=== PATIENT | female | born 1975 | race Caucasian/White ===

== ENCOUNTER → 2019-11-23 | Outpatient (CLI) | payer OTHER, SELFPAY ==
--- NOTE | 2019-11-23 12:25 | BI_ITS ---
MAMMOGRAPHY - BILATERAL SCREENING 3-D TOMOSYNTHESIS REASON FOR EXAM: Female, 44 years old. Routine screening PERTINENT HISTORY: BILAT SCREENING - NO FAM HX - NO PREV SURG''S - RT MOLE MARKED. TECHNIQUE: 2-D mammograms and 3-D Tomosynthesis of the breast (s) were performed. CAD was performed. COMPARISON: 2018 FINDINGS: The breast composition is heterogeneously dense that can obscure small breast masses. Scattered benign calcifications are seen. No dense spiculated masses or suspicious microcalcifications are identified. No architectural distortion is identified. There is no skin thickening or retraction. There has been no significant change since the prior study. BI/SCREEN MAMM (CAD) W/THUAN BILAT IMPRESSION: No mammographic signs of malignancy. Routine yearly mammograms recommended. ASSESSMENT CATEGORY: BIRADS Category 2: Benign. A letter regarding these results will be sent to the patient by the facility within 30 days. FOLLOW UP RECOMMENDATION: Yearly follow up mammogram recommended. (A) Approximately 10% of breast cancers are not detected by mammography. A normal mammogram should not delay biopsy of a clinically suspicious abnormality. Electronically Signed: Leno Tillman MD at 14:10 EDT , Service support ,
== END | disposition home or self-care (01) ==
LOC: OPBI 12:23
PROVIDERS: PCP Family Medicine; Referring Provider Physician Assistant; Visit Provider Physician Assistant
DX: Z12.31 Encounter for screening mammogram for malignant neoplasm of breast (principal)
CPT/HCPCS: 77063; 77067

== ENCOUNTER 2020-06-03 17:00 | Outpatient (RCR) | payer OTHER, SELFPAY ==
[2020-02-15 16:17] VITALS: BMI 47.9
--- NOTE | 2020-05-09 17:02 | HP.PTEVAL ---
Patient's Visit Information GALILEA BRAVO is a 44 year old F referred to Physical Therapy by KANWAL Becerra with a diagnosis of Lumbar Pain from Fall. Date of Evaluation: 05/09/20 Physical Therapist: Aracely Sneed DPT - Visit Plan Frequency: 3x /Week Duration: 4 Weeks Plan: Aquatic-focus on LE and core strength/stabilzation- possible extension bias. - Subjective Patient reports that she fell at work in January- she slipped on water and her right foot went out from under her and she landed on her right buttock ([employer]). Hit elbow and sprained wrist- everything else has healed but her back is still bothersome. She has never had back problems before and now she has chronic pain. The back started bothering her from the beginning but now its in the low back and into the right buttock and into the left buttocks and radiate down to the left foot. The pain comes an goes and changes. When she was sick she was sneezing and then had severe pain- went to bed and she was much better. Worst: 10/10 Agg: sneezing fit, everything, sitting for to long, standing to long, bending forwards. Sleep: disturbed- hard to get comfortable and wakes her up. Eases: changing positions. Best: 3/10. Describes the pain as dull and achy but can also be shooting/sharp. Pinching in her right buttocks and the whole area is achy. Has had x-rays but no MRI on her spine. Every once in awhile she has N/T in the left LE. Pain in the left leg and calf has only happened 1x. Does report some changes in bowel/bladder but attributes that to menopaus-its getting better. Is not taking any pain medication other than over the counter. 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 PMHx: GERD, epileptic (no seizure for every 10 years). Meds: lomictal - Objective Posture: significant guarding- FH, RS- increased kyphosis- can not correct with verbal or tactile cues without pain. Gait: no significant deviation noted HR/TR: able in standing with UE A. SLS: 3 sec bilateral Sensation: WNL to gross touch bilateral. Reflex: WNL Palpation: tender to light touch in hip and into the gluts and paraspinals. ROM: Lumbar: flexion to 90 degrees with support from chair, Ext: neutral, SB and Rotation: WNL reports pain with SB and Right Rotation Hip/Knee/Ankle: WFL. Strength: Core: poor, Hip: 4/5 throughout Knee: 4+/5, Ankle: 5/5. Flex: HS: severe, Gastroc: severe. Special Test: Slump: positive, Dural Signs: positive bilateral, Prone decreased s/s but then when she returned to neutral reports of stronger pains - Goals Goal 1:: Patient will be I with HEP and progression Goal Time Frame: 4-6 Weeks Goal 2:: Patient will maintain proper posture t/o tx session to demo increase core s.s Goal Time Frame: 4-6 Weeks Goal 3:: Patient will report no radiating pain Goal Time Frame: 4-6 Weeks - Rehabilitation Potential Physical Therapy Diagnosis: Patient presents from hypomobiliy- she has decreased ROM,strength, flex and muscular endurance leading to increased pain with ADL's. Rehabilitation Potential: Fair - Anticipated Interventions Therapeutic Exercise to Include: Strength training, Endurance training, Balance training, Agility training, Body mechanics, Postural training, Flexibilty training, Gait and locomotor training, Neuromotor development, In an aquatic setting, Passive ROM, Active ROM, Dynamic Lumbar Stabilization, Jignesh Exercises, Scapular Strength/Stabilization For the Purpose of:: To improve muscle performance and motor function Thank you for the opportunity to evaluate your patient. For Medicare and Medicare HMO plans, please review the plan of care and approve it. It will need to be FAXED BACK to us at [phone] for Medicare purposes. For Medicare only, by signing this I certify the plan of care. Please let me know if there are questions or concerns regarding this plan of care. Physician Signature: Date:
--- NOTE | 2020-07-08 13:51 | HP.PT.NRP ---
GALILEA BRAVO was seen in my office for initial evaluation on 05/09/20. The following Plan of Care was established for this patient: Initial Frequency: 3x /Week Initial Duration: 4 Weeks Therapeutic Exercise to Include: Strength training, Endurance training, Balance training, Agility training, Body mechanics, Postural training, Flexibilty training, Gait and locomotor training, Neuromotor development, In an aquatic setting, Passive ROM, Active ROM, Dynamic Lumbar Stabilization, Jignesh Exercises, Scapular Strength/Stabilization For the Purpose of:: To improve muscle performance and motor function This patient was last seen in our office . Pertinent comments regarding their Physical therapy will appear below: Patient has not attended physical therapy in over 30 days, appropriate to be discharged from PT and return to MD for further evaluation as needed. At this point I will be discontinuing this patient from physical therapy. I would be happy to see this patient again in the future if found appropriate by the physician. Thank you! Aracely Sneed DPT
== END 2020-06-03 19:00 | disposition home or self-care (01) ==
LOC: PT 17:00
PROVIDERS: PCP Physician Assistant; Referring Provider Physician Assistant; Visit Provider Physician Assistant
DX: S39.012D Strain of muscle, fascia and tendon of lower back, subsequent encounter (principal); S29.019D Strain of muscle and tendon of unspecified wall of thorax, subsequent encounter
CPT/HCPCS: 97113; 97162

== ENCOUNTER 2022-09-17 04:49 | Emergency (ER) | payer BC, SELFPAY ==
[2022-09-17 04:49] VITALS: BP 123/74; PULSE 93; RESP 17; TEMP 36.6; O2SAT 100; BMI 52.7
--- NOTE | 2022-09-17 04:57 | CT_ITS ---
EXAM: CT HEAD WITHOUT INTRAVENOUS CONTRAST CLINICAL INDICATION: head injury TECHNIQUE: Multiple axial images were obtained of the head without intravenous contrast. This CT exam was performed using one or more of the following dose reduction techniques: automated exposure control, adjustment of the mA and/or kV according to patient size, and/or use of iterative reconstruction technique. COMPARISON: No relevant prior studies available. FINDINGS: BRAIN AND EXTRA-AXIAL SPACES: Unremarkable. No intra- or extra-axial hemorrhage. No evidence of acute infarct. No intracranial mass or mass effect. There is preservation of the logan/white matter interface. Posterior fossa structures are unremarkable. Ventricles are appropriate for age. No hydrocephalus. Basal cisterns are patent. BONES/JOINTS: Unremarkable. No discrete lytic or blastic abnormalities. SINUSES: Unremarkable as visualized. Clear. MASTOID AIR CELLS: Unremarkable. Clear. ORBITS: Visualized globes, extraocular muscles, optic nerves and retrobulbar fat appear unremarkable. ASPECTS: 10 CT/Brain/Head without Contrast IMPRESSION: Negative head/brain CT without intravenous contrast. Electronically Signed: Deniz Flaherty MD at 5:36 EDT ,
--- NOTE | 2022-09-17 04:58 | EX.ED.DYSGE1 ---
HPI History of Present Illness Chief Complaint: Seizure Detail of Chief Complaint: Seizure Informant: patient and spouse/S.O. Narrative Narrative: Patient presents to the emergency department from home with complaint of a seizure. Patient presents via squad. states that he was get ready for work when he had heard a thud upstairs. He went up and found her on the bathroom floor seizing. Patient does have history of seizures but her last seizure was about 15 years ago. Patient just last month was taken off her lamotrigine after following up with neurology. Patient complaining of some pain in her right shoulder. She denies headache. She denies chest pain. She denies abdominal pain. She denies recent illness. Patient did not lose control of bowel or bladder. [facility] Medical History (Updated 09/17/22 @ 06:[address] Alecia Christian, DO) Seizures Home Medications lamotrigine 200 mg tablet 200 mg PO DAILY #30 tabs 09/17/22 [Rx Last Taken Unknown] Allergy/AdvReac Type Severity Reaction Status Date / Time No Known Allergies Allergy Verified 09/17/22 04:54 Social History (Updated 05/22/20 @ 13:19 by Mickey SCHOFIELD, PA) Smoking Status: Never smoker ROS ROS ED Review of Systems ROS Unobtainable: other Constitutional Constitutional ED: Reports lethargy; Denies chills, fever(s), sweats or weight loss Eyes Eyes: Denies blurry vision, change in vision or diplopia ENT ENT ED: Denies rhinorrhea or sore throat Cardiovascular Cardiovascular: Denies chest pain, orthopnea or racing heartbeat Respiratory/Chest Respiratory/Chest: Denies cough, dyspnea, dyspnea on exertion, orthopnea or sputum Gastrointestinal Gastrointestinal: Denies abdominal pain, diarrhea, nausea or vomiting Genitourinary Genitourinary ED: Denies dysuria, hematuria or urinary frequency Musculoskeletal Musculoskeletal: Denies arthralgias, back pain, myalgias or neck pain Integumentary Denies abscess, Abrasions or rash Neurologic Neurologic: Reports other Details: Seizure ; Denies headache(s) or weakness Psychiatric Psychiatric: Denies anxiety, depression or suicidal thoughts Endocrine Endocrinology: Denies polydipsia, polyphagia or polyuria Hematologic/Lymphatic Hematologic/Lymphatic: Denies easy bleeding, easy bruising or lymphadenopathy Allergic/Immunologic Allergic/Immunologic ED: Denies mouth swelling, tongue swelling or urticaria EXAM Physical Exam Const Vital Signs: 09/17/22 04:49 Temperature 97.9 F Temperature Source Temporal Pulse Rate 93 Respiratory Rate 17 Blood Pressure 123/74 H Blood Pressure Mean 90 Pulse Ox 100 Oxygen Delivery Method Room Air Positive well nourished and well developed General Appearance ED: well developed and NAD HEENT Reports TM's clear and moist mucous membranes HEENT Narrative: Small contusion to the mucosal surface of the lower lip. No dental trauma noted. No bite wounds to the tongue noted. normocephalic and atraumatic; Negative for trauma or tenderness Tympanic Membrane ED: Yes TM's clear Eyes PERRL and EOMs intact bilaterally General Eye ED: Negative for pale conjunctiva or scleral icterus Neck no lymphadenopathy, supple and no JVD General: Negative for tenderness Chest Wall inspection of chest normal and palpation of chest normal Chest: Negative for tenderness Resp normal respiratory effort and clear to auscultation bilaterally Effort and Inspection: Negative for respiratory distress or pain with movement Auscultation: Negative for rhonchi, wheezes or diminished lung sounds Cardio regular rate, regular rhythm, S1 normal heart sound, S2 normal heart sound and no murmurs Peripheral Pulses: pulses 2+ throughout GI normal to inspection, nondistended, normoactive bowel sounds, soft to palpation, non-tender, non-distended and no masses Back/Spine no CVA tenderness and no thoracic nor lumbar tenderness Extremity normal to inspection General Extremety ED: Negative for edema General Extremity: Negative for edema Neuro oriented x3, CN's II-XII intact bilaterally, no sensory deficits noted and gait normal Sensorium / Orientation: awake, alert, oriented to person, oriented to place and oriented to time Motor Exam: strength 5/5 throughout and strength abnormal Psych mental status grossly normal Skin no rashes or lesions noted and no wounds MDM MDM MDM Narrative Medical decision making narrative: Patient with suspected seizure presents from home. She did fall therefore CT scan of the brain without contrast was obtained and this was unremarkable. Patient also complained of some right shoulder pain and x-ray of the right shoulder obtained showed no fractures. Patient had some basic labs with CBC showing a white count of 5.1 and hemoglobin 9.9. Chemistries unremarkable. LFTs unremarkable. Glucose was 146. Urinalysis also ordered. Patient started complaining of pain in the left shoulder blade area as well as her right hip therefore I ordered x-ray of the left scapula and pelvis x-ray which are pending. Patient tells me she really does not see a neurologist. She had an EEG in [place] and a telehealth visit with a neurologist but that her PCP actually took her off the seizure medicine that she was on the Lamictal. Patient had not had a seizure in 15 years. At this point I did restart her Lamictal 200 mg a day. Care of patient turned over to morning physician awaiting imaging results and urinalysis results. Care of patient turned over to morning physician awaiting urine results and imaging results. Lab Data Attestation: I reviewed the patient's lab results. Labs: Laboratory Results - last 24 hr 09/17/22 09/17/22 05:03 05:03 WBC 5.1 RBC 4.51 Hgb 9.9 L Hct 33.5 L MCV 74.3 L MCH 22.0 L MCHC 29.6 L RDW Std Deviation 47.3 H RDW Coeff of Aamir 17.7 H Plt Count 207 MPV 9.4 Immature Gran % (Auto) 0.600 Neut % (Auto) 67.8 Lymph % (Auto) 23.2 Atkinson % (Auto) 8.4 Eos % (Auto) 0.0 Baso % (Auto) 0.0 Absolute Neuts (auto) 3.5 Absolute Lymphs (auto) 1.18 Nucleated RBC % 0 Sodium 139 Potassium 3.4 L Chloride 108 H Carbon Dioxide 24.0 Anion Gap 7 BUN 13 Creatinine 0.96 Estim Creat Clear Calc 56.07 Est GFR (MDRD) Af Amer 80 Est GFR (MDRD) Non-Af 66 BUN/Creatinine Ratio 13.5 Glucose 146 H Calcium 8.9 Total Bilirubin 0.40 AST 27 ALT 53 Alkaline Phosphatase 84 Total Protein 6.5 Albumin 3.5 Globulin 3.0 Albumin/Globulin Ratio 1.2 Radiography Diagnostic Testing: Clinical Impression(s) from Imaging Studies Brain CT 09/17/22 04:57 IMPRESSION: Negative head/brain CT without intravenous contrast. Electronically Signed: Deniz Flaherty MD at 5:36 EDT , Shoulder X-Ray 09/17/22 15:20 IMPRESSION: Negative right shoulder x-rays. Electronically Signed: Deniz Flaherty MD at 5:39 EDT , Discharge Plan Triage Chief Complaint: Seizure ED Provider: Alecia Christian Dx/Rx/DC Orders Clinical Impression: Seizure, Back contusion, Closed head injury Instructions: ED Back Contusion, ED Head Injury (Adult), ED Seizure, Recurrent (Adult) Prescriptions: New lamotrigine 200 mg tablet 200 mg PO DAILY Qty: 30 0RF Primary Care Provider: Rach Perkins Referrals: Rach Perkins, KANWAL [Primary Care Provider] - 3-5 Days Disposition Disposition: Home, Self Care
[2022-09-17 05:08] LABS: Absolute Lymphocyte Count 1.18 X10^3/uL (0.83-4.51); Absolute Neutrophil Count 3.5 X10^3/uL (2.0-7.7); Hematocrit 33.5 % (37-47); Hemoglobin 9.9 g/dL (12.0-15.0); Lymphocyte # 1.18 X10^3/ul (0.83-4.51); Lymphocyte % 23.2 % (19-41); Mean Corp Hgb Conc 29.6 g/dL (32-36); Mean Corpuscular Volume 74.3 fL (81-99); Mean Platelet Vol. 9.4 fl (6.2-12.0); Monocyte# 0.43 X10^3/uL; Monocyte% 8.4 % (0-10); NRBC Flagged by Analyzer 0 % (0-5); Neutrophil # 3.45 X10^3/uL (2.7-7.7); Neutrophil % 67.8 % (47-70); Platelet Count 207 K/mm3 (150-450); RBC Distribution Width CV 17.7 % (11.6-14.6); RBC Distribution Width SD 47.3 fl (35.1-43.9); Red Blood Count 4.51 M/mm3 (4.2-5.4); White Blood Count 5.1 K/mm3 (4.4-11.0)
[2022-09-17] MEDS: lamoTRIgine 100 MG Tablet 200 MG PO (05:50)
[2022-09-17 06:05] LABS: ALB/GLOB Ratio 1.2 RATIO (0.9-2.4); Albumin, Serum 3.5 g/dL (3.2-5.0); BUN 13 mg/dL (7-18); BUN/Creat Ratio 13.5 RATIO (10-20); Calcium,Total 8.9 mg/dL (8.5-10.1); Creatinine, Serum 0.96 mg/dL (0.55-1.02); Estimated Creatinine Clearance 56.07 ml/min; Glucose 146 mg/dL (74-106); Protein, Total 6.5 g/dL (6.4-8.2)
[2022-09-17 06:06] LABS: AST(SGOT) 27 U/L (15-37); Alanine Aminotransfer ALT/SGPT 53 U/L (13-56); Alkaline Phosphatase 84 U/L (45-117); Anion Gap 7 (5-15); Chloride 108 mmol/L (98-107); Potassium 3.4 mmol/L (3.5-5.1); Sodium Level 139 mmol/L (136-145)
[2022-09-17] MEDS: Ondansetron 4 MG/2 ML Vial IV (06:07)
[2022-09-17] MEDS: Morphine 4 MG/ML Syringe IV (06:07)
--- NOTE | 2022-09-17 06:55 | RAD_ITS ---
EXAM: XR PELVIS, 1 OR 2 VIEWS CLINICAL INDICATION: fall TECHNIQUE: Frontal view of the pelvis. COMPARISON: No relevant prior studies available. FINDINGS: BONES/JOINTS: Unremarkable. No displaced fracture. No destructive or sclerotic lesions. Note that overlapping bowel shadows may however obscure fine detail. Sacroiliac joints are unremarkable. No widening of the pubic symphysis. The articular structures are unremarkable. SOFT TISSUES: Unremarkable. No soft tissue swelling or gas. RAD/Pelvis 1 or 2 Views IMPRESSION: No evidence of displaced pelvic fracture. Electronically Signed: Deniz Flaherty MD at 7:12 EDT ,
--- NOTE | 2022-09-17 06:55 | RAD_ITS ---
EXAM: XR LEFT SCAPULA COMPLETE CLINICAL INDICATION: injury TECHNIQUE: Frontal and Y-view of the left scapula. COMPARISON: Shoulder from same date FINDINGS: BONES/JOINTS: Unremarkable. No acute fracture. No subluxation. Normal alignment. Preservation of the joint space. No sclerotic or destructive changes observed. SOFT TISSUES: Unremarkable. No soft tissue swelling or gas. No radiopaque foreign body. RAD/Scapula IMPRESSION: Negative left scapula x-rays. Electronically Signed: Deniz Flaherty MD at 7:21 EDT ,
[2022-09-17] MEDS: Ketorolac 30 MG/ML Syringe IV (07:19)
[2022-09-17 08:04] LABS: EST Glomerular Filtration Rate 66 mL/min (>60); Est Glom Filt Rate - Afr Amer 79 mL/min (>60); Prolactin 23.4 ng/mL
[2022-09-17 08:15] VITALS: BP 124/78; PULSE 90; RESP 16; O2SAT 99
--- NOTE | 2022-09-17 15:20 | RAD_ITS ---
EXAM: XR RIGHT SHOULDER COMPLETE, 2 OR MORE VIEWS CLINICAL INDICATION: injury TECHNIQUE: Two or more views of the right shoulder. COMPARISON: No relevant prior studies available. FINDINGS: BONES/JOINTS: Unremarkable. No acute fracture. No subluxation. Normal alignment. Preservation of the joint space. No sclerotic or destructive changes observed. SOFT TISSUES: Unremarkable. No soft tissue swelling or gas. No radiopaque foreign body. RAD/Shoulder min 2 Views IMPRESSION: Negative right shoulder x-rays. Electronically Signed: Deniz Flaherty MD at 5:39 EDT ,
== END 2022-09-17 08:49 | disposition home or self-care (01) ==
PROVIDERS: Emergency Provider Emergency Medicine; PCP Physician Assistant; Visit Provider Emergency Medicine
DX: R56.9 Unspecified convulsions (principal); S20.229A Contusion of unspecified back wall of thorax, initial encounter; M25.511 Pain in right shoulder; S09.90XA Unspecified injury of head, initial encounter; S00.531A Contusion of lip, initial encounter; W19.XXXA Unspecified fall, initial encounter
CPT/HCPCS: 70450; 72170; 73010; 73030; 80053; 84146; 85025; 96374; 96375; 99285; J2405

== ENCOUNTER → 2022-12-15 | Outpatient (CLI) | payer BC, SELFPAY ==
--- NOTE | 2022-12-15 14:30 | US_ITS ---
STUDY: ULTRASOUND BREAST - LEFT REASON FOR EXAM: Female, 47 years old. Nipple discharge in the left breast. TECHNIQUE: Axial and longitudinal images of the LEFT breast were performed with a high resolution ultrasound transducer. # OF IMAGES: 50 COMPARISON: Comparison is made with prior mammogram done earlier in the day. FINDINGS: LEFT Breast: The retroareolar region of the breast was examined with ultrasound. There is evidence of dilated subareolar ducts. Incidental note is made of a 5 mm x 6 mm x 5 mm cyst. US/Breast Limited Unilateral IMPRESSION: There is a 5 mm x 6 mm x 5 mm cyst. Dilated retroareolar ducts. ASSESSMENT CATEGORY: BIRADS Category 2: Benign. A letter regarding these results will be sent to the patient by the facility within 30 days. Electronically Signed: Balta Espino MD at 9:41 EDT ,
--- NOTE | 2022-12-15 14:30 | BI_ITS ---
MAMMOGRAPHY - BILATERAL DIAGNOSTIC REASON FOR EXAM: Female, 47 years old. Recent left breast hematoma following a fall. Bilateral breast discharge. PERTINENT HISTORY: Non-contributory. TECHNIQUE: Digital bilateral breast carlos alberto (3D mammographic acquisition) in the CC and MLO projections. 2-D mediolateral oblique (MLO) and craniocaudad (CC) views of both breasts were obtained. CAD: Full Field Digital Mammography with Computer Added Detection was performed. COMPARISON: Comparison is made with prior study dated November 23, 2019. FINDINGS: Breast Composition: The breasts are heterogeneously dense, which may obscure small masses. There are no dominant masses or suspicious calcifications. Stable bilateral fat containing axillary lymph nodes. No other significant abnormalities are identified. There has been no significant change since the prior study. BI/DIAG MAMM W/CAD, BILAT IMPRESSION: Stable bilateral diagnostic mammogram. With the patient''s history of a hematoma in the left breast as well as bilateral nipple discharge, targeted ultrasound of both breasts is recommended. ASSESSMENT CATEGORY: BIRADS Category 0: Incomplete. Need additional imaging evaluation. A letter regarding these results will be sent to the patient by the facility within 30 days. Approximately 10% of breast cancers are not detected by mammography. A normal mammogram should not delay biopsy of a clinically suspicious abnormality. Electronically Signed: Balta Espino MD at 8:10 EDT ,
== END | disposition home or self-care (01) ==
LOC: OPBI 14:25
PROVIDERS: PCP Physician Assistant; Referring Provider Obstetrics & Gynecology; Visit Provider Obstetrics & Gynecology
DX: N64.52 Nipple discharge (principal)
CPT/HCPCS: 76642; 77062; 77066; G0279

== ENCOUNTER → 2022-12-22 | Outpatient (CLI) | payer BC, SELFPAY ==
[2022-12-22 18:31] LABS: Absolute Lymphocyte Count 1.23 X10^3/uL (0.83-4.51); Absolute Neutrophil Count 3.4 X10^3/uL (2.0-7.7); Hematocrit 34.3 % (37-47); Hemoglobin 10.3 g/dL (12.0-15.0); Lymphocyte # 1.23 X10^3/ul (0.83-4.51); Lymphocyte % 24.4 % (19-41); Mean Corpuscular Hgb 22.5 pg (27.0-32.0); Mean Corpuscular Volume 74.9 fL (81-99); Mean Platelet Vol. 9.7 fl (6.2-12.0); Monocyte# 0.45 X10^3/uL; Monocyte% 8.9 % (0-10); NRBC Flagged by Analyzer 0 % (0-5); Neutrophil # 3.36 X10^3/uL (2.7-7.7); Neutrophil % 66.5 % (47-70); Platelet Count 253 K/mm3 (150-450); RBC Distribution Width CV 17.1 % (11.6-14.6); RBC Distribution Width SD 45.4 fl (35.1-43.9); Red Blood Count 4.58 M/mm3 (4.2-5.4); White Blood Count 5.1 K/mm3 (4.4-11.0)
[2022-12-22 20:01] LABS: ALB/GLOB Ratio 1.2 RATIO (0.9-2.4); AST(SGOT) 34 U/L (15-37); Alanine Aminotransfer ALT/SGPT 66 U/L (13-56); Albumin, Serum 3.7 g/dL (3.2-5.0); Alkaline Phosphatase 94 U/L (45-117); Anion Gap 7 (5-15); BUN 14 mg/dL (7-18); BUN/Creat Ratio 19.2 RATIO (10-20); Calcium,Total 8.9 mg/dL (8.5-10.1); Chloride 106 mmol/L (98-107); Cholesterol 195 mg/dL (200); Creatinine, Serum 0.73 mg/dL (0.55-1.02); EST Glomerular Filtration Rate 90 mL/min (>60); Est Glom Filt Rate - Afr Amer 109 mL/min (>60); Follicle Stimulating Hormone 39.3 mIU/mL; Glucose 94 mg/dL (74-106); High Density Lipoprotein 43 mg/dL; Luteinizing Hormone 22.9 mIU/mL; Potassium 3.7 mmol/L (3.5-5.1); Protein, Total 6.7 g/dL (6.4-8.2); Sodium Level 139 mmol/L (136-145); Thyroid Stim Hormone (TSH) 1.11 uIU/mL (0.358-3.74); Triglycerides 200 mg/dL; Very Low Density Lipoprotein 40 mg/dL (5-40)
== END | disposition home or self-care (01) ==
LOC: MFPLAB 15:41
PROVIDERS: PCP Family Medicine; Visit Provider Family Medicine
DX: R53.83 Other fatigue (principal); Z13.1 Encounter for screening for diabetes mellitus; N95.9 Unspecified menopausal and perimenopausal disorder
CPT/HCPCS: 36415; 80053; 80061; 83001; 83002; 84443; 85025

== ENCOUNTER → 2024-02-17 | Outpatient (CLI) | payer BC, SELFPAY ==
--- NOTE | 2024-02-17 13:26 | BI_ITS ---
MAMMOGRAPHY - BILATERAL SCREENING 3-D TOMOSYNTHESIS REASON FOR EXAM: Female, 48 years old. SCREENING PERTINENT HISTORY: No significant family history. TECHNIQUE: 2-D mammograms and 3-D Tomosynthesis of the breast (s) were performed. CAD was performed. COMPARISON: 12/15/2022 FINDINGS: The breast composition is heterogeneously dense that can obscure small breast masses. Scattered benign calcifications are seen. No dense spiculated masses or suspicious microcalcifications are identified. No architectural distortion is identified. There is no skin thickening or retraction. There has been no significant change since the prior study. BI/SCRN MAMM (CAD)W/THUAN BILAT IMPRESSION: No mammographic signs of malignancy. Routine yearly mammograms recommended. ASSESSMENT CATEGORY: BIRADS Category 1: Negative. A letter regarding these results will be sent to the patient by the facility within 30 days. FOLLOW UP RECOMMENDATION: Yearly follow up mammogram recommended. (A) Approximately 10% of breast cancers are not detected by mammography. A normal mammogram should not delay biopsy of a clinically suspicious abnormality. Electronically Signed: Cristobal Mendosa MD at 14:26 EDT ,
== END | disposition home or self-care (01) ==
LOC: OPBI 13:24
PROVIDERS: PCP Family Medicine; Referring Provider Family Medicine; Visit Provider Family Medicine
DX: Z00.00 Encounter for general adult medical examination without abnormal findings (principal); Z12.31 Encounter for screening mammogram for malignant neoplasm of breast
CPT/HCPCS: 77063; 77067

== ENCOUNTER → 2024-12-25 | Outpatient (CLI) | payer OTHER, SELFPAY ==
--- NOTE | 2024-12-25 14:24 | CT_ITS ---
PROCEDURE: ABDOMEN/PELVIS WITH CONTRAST 12/25/2024 REASON FOR EXAM: UPPER ABDOMEN PAIN Chronic TECHNIQUE: ABDOMEN/PELVIS WITH CONTRAST Coronal and Sagittal reconstruction series were provided. CONTRAST: Isovue-300 VOLUME: 95 mL One or more dose reduction techniques were used (e.g., Automated exposure control, adjustment of the mA and/or kV according to patient size, use of iterative reconstruction technique. RADIATION DOSE SUMMARY: CTDlvol: 17.09 mGy DLP: 1343.02 mGycm COMPARISON: None FINDINGS: Lung bases: The lung bases are clear. Liver: Diffuse fatty infiltration. Gallbladder: Unremarkable Spleen: Moderate splenomegaly. Pancreas: Normal size without evidence of mass surrounding inflammation or ductal dilation. Adrenals: Unremarkable Kidneys: Normal renal sizes. No hydronephrosis. Bladder: Partially filled. Unremarkable. Reproductive Organs: Findings in keeping with enlarged fibroid uterus. Bowel: Colonic diverticulosis without diverticulitis. Appendix: The appendix is not identified. There is no inflammatory process identified in the right lower quadrant to suggest appendicitis. Lymph nodes: Unremarkable. Vasculature: The abdominal aorta and IVC are normal. Peritoneum / Retroperitoneum: Unremarkable Bones: Mild disc space narrowing at the L4-L5 level. CT/Abdomen/Pelvis WITH Contrast IMPRESSION: Fatty infiltration of the liver. Splenomegaly. Findings suggestive of fibroid uterus. Reading Location: [id number]
== END | disposition home or self-care (01) ==
LOC: CT 14:03
PROVIDERS: PCP Family Medicine; Referring Provider Obstetrics & Gynecology; Visit Provider Obstetrics & Gynecology
DX: R10.10 Upper abdominal pain, unspecified (principal)
CPT/HCPCS: 74177; Q9967

== ENCOUNTER → 2025-01-30 | Outpatient (CLI) | payer OTHER, SELFPAY ==
--- OUTSIDE RECORDS SUMMARY | 2024-04-30 01:39 | XMS RPT_ITS ---
Author Name Auto Generated Organization [facility] Care Team Providers Care Icer Hand Name Role Phone AKBAR SCHOFIELD, MR Loyd MECHE Primary Care Unavaila vipul BOTELLO MD, DR MELO Attending Unavailab le BLAISE, AMPARO Referring Unavailable SHAQUILLE, CHALON Primary Care Unavailable BLAISE, AMPARO Attending Unavailable BLAISE, AMPARO Referring Unavailable SHAQUILLE, CHALON Primary Care Unavailable BLAISE, AMPARO Attending Unavailable SHAQUILLE, CHALON Primary Care Unavailable BLAISE, AMPARO Attending Unavailable SHAQUILLE, CHALON Primary Care Unavailable PROBLEMS DATE TYPE CONDITION / CODE ATTENDING STATUS [facility] 04/11/2024 Active Pelvic pain in f emale / R10.2(ICD-10) NA Active [facility] PROCEDURES No Procedure Records Found RESULTS TROPHS Collected: 04/30/2024 2:35 AM Status: F Source: [facility] TYPE CODE TESTS RESULT OUT OF RANGE REFERENCE UNITS LAB HSTROP(LOINC) High Sensitivity Troponin I 5 0-51 ng/L Result Comment: High Sensiti ve Troponin I Reference Ranges: Female: 0-51 ng/L Male: 0-76 ng/L Testing performed on Planbus using a homogeneous sandwich chemiluminescent immunoassay based on Segetis technology. Performed By: #### TROPHS ## ## [address] [address] XR CHEST 2 VIEWS Observed: 04/30/2024 2:18 AM Status: F Source: [facility] ORIGINAL EXAMINATION: TWO XRAY VIEWS OF THE CHEST04/30/2024 2:20 am CHEST AP/PA and LATERAL COMPARISON: None HISTORY: ORDERING SYSTEM PROVIDED HISTORY: Reason for Exam: Chest Pain FINDINGS: The cardiomediastinal silhouette is normal in appearance. No consolidation, pleural effusion, or vascular congestion is seen. The osseous structures are intact. IMPRESSION: No acute findings. Interpreted by: Darinel Flores MD Preliminary Report By: Darinel Flores MD Electronically signed By Darinel Flores MD Dictated Date: 04/30/2024 2:40:00 AM Prelim Date: 04/30/2024 2:41:22 AM Sign Date: 04/30/2024 2:41:22 AM Ordering Provider: KAMERON BOTELLO CVFLURV Collected: 1:57 AM Status: F Source: [facility] TYPE CODE TESTS RESULT OUT OF RANGE REFERENCE UNITS LAB IRW1PRK(LOINC) SARS-CoV-2 PCR Negative Negative Result Comment: Results from the Xpert Xpress CoV-2/Flu/RSV plus test should be correlated with the clinical history, epidemiological data, and other data available to the clinical evaluating the patient. Performance of the Xpert Xpress CoV- 2/Flu/RSV plus test has only been established in nasopharyngeal swab specimen. Erroneous test results might occur from improper specimen collection, failure to follow the recommended sample collection, handling and storage procedures, technical error, or sample mix-up. False negative results may occur if a virus is present at a level below the analytical limit of detection. Viral nucleic acid may persist in vivo, independent of virus viability. Detection of analyte target(s) does not imply that the corresponding virus(es) are infectious or are the causative agents for clinical symptoms. Recent patient exposure to FluMist or other live attenuated influenza vaccines may cause inaccurate positive results. LAB FLUAPCR(LOINC) FLU A PCR Negative Negative LAB FLUBPCR(LOINC) FLU B PCR Negative Negative LAB RSVPCR(LOINC) RSV PCR Negative Negative Performed By: #### CVFLURV # ### [facility] [address] [place], [place] [address] UA Collected: 04/30/2024 1:57 AM Status: F Source: [facility] TYPE CODE TESTS RESULT OUT OF RANGE REFERENCE UNITS LAB SPCUA(LOINC) UA Specimen Type Clean Catch LAB CLRUA(LOINC) UA Color Yellow LAB APPUA(LOINC) UA Appear Slightly Cloudy Abnormal Clear LAB SGUA(LOINC) UA Spec Grav 1.010 Abnormal 1.015-1.025 LAB GLUA(LOINC) UA Glucose Negative Negative mg/dL LAB BILUA(LOINC) UA Bili Negative Negative LAB KETUA([facility]) UA Ketones Negative Negative mg/dL LAB BLDUA(INC) UA Blood Negative Negative LAB PHUA(LOINC) UA pH 6.0 5.0 - 8.0 LAB PROUA(LOINC) UA Protein Negative Negative mg/dL LAB UROUA(INC) UA Urobilinogen 0.2 0.2-1.0 E.U ./dL LAB NITUA([facility]) UA Nitrite Negative Negative LAB LEUUA([facility]) UA Leuk Est Negative Negative Performed By: #### UAMICAO, UA #### [place] [address] .URINALYSIS MICROSCOPIC (AO) Collected: 04/30/2024 1: 57 AM Status: F Source: [facility] TYPE CODE TESTS RESULT OUT OF RANGE REFERENCE UNITS LAB WBCUA([facility]) UA WBC None Seen None Seen /hpf LAB RBCUA([facility]) UA RBC None Seen None Seen /hpf LAB EPIUA([facility]) UA Squam Epithelial 0-5 Abnormal None Seen /hpf Performed By: #### UAMICAO, UA #### [place] [address] CBC Collected: 1:57 AM Status: F Source: [facility] TYPE CODE TESTS RESULT OUT OF RANGE REFERENCE UNITS LAB WBC(INC) WBC 4.8 4.5-10.8 10 3/mcL LAB RBCCT([facility]) RBC 4.31 4.10-5.30 10 6/mcL LAB HGB(INC) Hgb 12.1 12.0-16.0 G/dL LAB HCT(LOINC) Hct 34.7 34.0-46.0 % LAB MCV(LOINC) MCV 80.5 80.0-99.0 fL LAB MCH(LOINC) MCH 28.2 27.0-33.0 pg LAB MCHC(LOINC) MCHC 35.0 32.0-36.0 G/dL LAB RDW(LOINC) RDW 15.7 High 11.5-15.5 % LAB PLT(LOINC) Platelet 171 150-450 10 3/mcL LAB MPV(LOINC) MPV 7.7 6.6-10.5 fL Performed By: #### NATALIE MCCOY , BMP, GFR, ADIFF, CBC, TROPHS #### [address] [address] .AUTO DIFF Collected: 04/30/2024 1:57 AM Status: F Source: [facility] TYPE CODE TESTS RESULT OUT OF RANGE REFERENCE UNITS LAB TERE(LOINC) Neutrophil % 62.2 50.0-75.0 % LAB LYM(LOINC) Lymphocyte % 27.5 20.0-40.0 % LAB MON(LOINC) Monocyte % 9.8 2.0-13.0 % LAB EO(LOINC) Eosinophil % 0.1 0.0-7.0 % LAB BAS(LOINC) Basophil % 0.1 0.0-2.5 % LAB ABLYM(LOINC) Lymphocyte, Absolute 1.3 0.9-4.3 10 3/mcL LAB JOSÉ MANUEL(LOINC) Monocyte, Absolute 0.4 0.1-1.4 10 3/mcL LAB AEOS(LOINC) Eosinophil, Absolute 0.0 0.0-0.7 10 3/mcL LAB ABAS(LOINC) Basophil, Absolute 0.0 0.0-0.2 10 3/mcL Performed By: #### NATALIE MCCOY , BMP, GFR, ADIFF, CBC, TROPHS #### [address] [address] .NEUABS Collected: 1:57 AM Status: F Source: [facility] TYPE CODE TESTS RESULT OUT OF RANGE REFERENCE UNITS LAB ANEU(LOINC) Neutrophil, Absolute 3.0 2.3-8.1 10 3/mcL Performed By: #### NATALIE MCCOY , BMP, GFR, ADIFF, CBC, TROPHS #### [address] [address] .NATALIE Collected: 04/30/2024 1:57 AM Status: F Source: [facility] TYPE CODE TESTS RESULT OUT OF RANGE REFERENCE UNITS LAB [facility]IE[facility] Monocyte Distribution Width Not Performed 0.00-20.00 Result Comment: NATALIE testing unable to be performed on [id number] instrumentation. Performed By: #### NATALIE MCCOY , BAKARI, GFR, ADIFF, CBC, TROPHS #### [address] [address] TROPHS Collected: 04/30/2024 1:57 AM Status: F Source: [facility] TYPE CODE TESTS RESULT OUT OF RANGE REFERENCE UNITS LAB HSTROP(LOINC) High Sensitivity Troponin I 4 0-51 ng/L Result Comment: High Sensiti ve Troponin I Reference Ranges: Female: 0-51 ng/L Male: 0-76 ng/L Testing performed on Planbus using a homogeneous sandwich chemiluminescent immunoassay based on Segetis technology. Performed By: #### NATALIE MCCOY , BAKARI, GFR, ADIFF, CBC, TROPHS #### [address] [address] BMP Collected: 04/30/2024 1:57 AM Status: F Source: [facility] TYPE CODE TESTS RESULT OUT OF RANGE REFERENCE UNITS LAB GLU(LOINC) Glucose Level 128 High 70-105 mg/dL LAB NA(LOINC) Sodium Level 138 136-145 mmol/L LAB K(LOINC) Potassium Level 3.7 3.5-5.1 mmol/L LAB CL(LOINC) Chloride 103 98-107 mmol/L LAB CO2(LOINC) CO2 26 22-29 mmol/L LAB EBAL(LOINC) Electrolyte Balance 9.0 4.0-15.0 mEq/L LAB BUN(LOINC) BUN 13 7-18 mg/dL LAB CRE(LOINC) Creatinine Lvl (s) 1.03 High 0.55-1.02 mg/dL Result Comment: Testing perf ormed on [employer] Dimension EXL analyzer using a modified kinetic Shantanu technique. LAB BC(LOINC) BUN/Creatinine Ratio 13 7-27 ratio LAB CA(LOINC) Calcium Lvl 9.2 8.4-10.2 mg/dL Performed By: #### NATALIE MCCOY , BAKARI, GFR, ADIFF, CBC, TROPHS #### [place] [id number] [place], [place] [address] .GFR Collected: 1:57 AM Status: F Source: [facility] TYPE CODE TESTS RESULT OUT OF RANGE REFERENCE UNITS LAB GFRAA[facility] GFR 69 ml/min/1. 73sqm Result Comment: GFR Population mean for , Non- Americans Ages 20-29 = 116 mL/min/1.73 sq.m. Ages 30-39 = 107 mL/min/1.73 sq.m. Ages 40-49 = 99 mL/min/1.73 sq.m. Ages 50-59 = 93 mL/min/1.73 sq.m. Ages 60-69 = 85 mL/min/1.73 sq.m. Ages 70+ = 75 mL/min/1.73 sq.m. Chronic Kidney Disease: Less than 60 mL/min/1.73 square meters End Stage Renal Disease: Less than 15 mL/min/1.73 square meters LAB GFRNO(LOINC) GFR Non- 57 ml/min/1. 73sqm Result Comment: GFR Population mean for , Non- Americans Ages 20-29 = 116 mL/min/1.73 sq.m. Ages 30-39 = 107 mL/min/1.73 sq.m. Ages 40-49 = 99 mL/min/1.73 sq.m. Ages 50-59 = 93 mL/min/1.73 sq.m. Ages 60-69 = 85 mL/min/1.73 sq.m. Ages 70+ = 75 mL/min/1.73 sq.m. Chronic Kidney Disease: Less than 60 mL/min/1.73 square meters End Stage Renal Disease: Less than 15 mL/min/1.73 square meters Performed By: #### NADINE, NATALIE , BAKARI, GFR, ADIFF, CBC, TROPHS #### [place] [address] [place], [place] [address] CNPN Observed: 04/17/2024 12:00 AM Status: COMPLETED Source: [facility] Telephone (OBGYWM) GALILEA BRAVO ([id number]) 1975 F Date Time Provider Department 04/17/24 AMPARO MUKHERJEE During your visit today, we recorded the following information about you: Amparo Mukherjee APRN.CNP 04/17/2024 8:21 AM Signed Consult to [facility] filed. Please call pt to assist with scheduling appt. Thanks, GIO KeanePaty jamesJacinta 04/17/2024 12:16 PM Signed Consult to Minimal invasive gynecologic surgery, please assist and advice, Thank you Allergies As of Date: 04/17/2024 Noted Allergy Reaction HICKORY NUTS 01/22/2020 8 - GI Upset Comments: Charcoal and BBQ sauce, heartburn MILK 04/24/2008 6 - Diarrhea Comments: Cramps Date Reviewed: 04/11/2024 Reviewed by: Jackie Ramey LPN - Fully Assessed Reason for Visit: Appointment [186] Primary Visit Diagnosis:Subserous leiomyoma of uterus [D25.2] Order(s):CONSULT TO MINIMALLY INVASIVE GYNECOLOGIC SURGERY [[id number]] Order #: [id number]: 1 FUTURE Prescriptions as of 06/26/2024 - tramadol HCl (TRAMADOL ORAL) Take by mouth as needed. Back pain - triamcinolone (KENALOG) 0.025 % ointment Apply to affected area two times a day. - busPIRone (BUSPAR) 5 mg tablet Take 1 tablet by mouth three times a day. - lamoTRIgine (LAMICTAL) 25 mg tablet Take 1 tablet at night for 2 weeks then take 1 tablet twice daily for 2 weeks then take 1 tablet in the morning and 2 tablets at night for 1 week then take 2 tablets twice daily and continue at this dose. - pantoprazole DR (PROTONIX) 40 mg tablet Take 1 tablet by mouth twice daily. Take on empty stomach, 1/2 hr before meal. - fluticasone (FLONASE) 50 mcg/actuation nasal spray Use 2 Sprays in each nostril once daily. Rinse mouth after use. - dicyclomine (BENTYL) 20 mg tablet Take 1 tablet by mouth four times daily as needed. - cyclobenzaprine (FLEXERIL) 5 mg tablet Take 1 tablet by mouth three times daily as needed. - cimetidine (TAGAMET) 400 mg tablet TAKE 1 TABLET BY MOUTH ONCE DAILY AT BEDTIME NEEDED Problem List As Of Date 04/17/2024 Noted Resolved Routine gynecological examination [Z01.419] 04/24/2008 05/27/2018 Class: Chronic ESOPHAGEAL REFLUX [K21.9] 04/24/2008 Obesity, Class III, BMI 40-49.9 (morbid obesity*04/24/2008 Generalized seizures (HCC) [R56.9] 04/24/2008 Essential hypertension, benign [I10] 04/24/2008 05/27/2018 SANDRA (generalized anxiety disorder) [F41.1] 04/24/2008 Plantar fasciitis [M72.2] 07/05/2017 05/27/2018 Fibroids, subserous [D25.2] 04/13/2024 Adenomyosis of the uterus [N80.03] 04/13/2024 Encounter Status:Closed by AMPARO MUKHERJEE on 06/26/24 PROGRESS Observed: 04/12/2024 11:55 PM Status: COMPLETED Source: [facility] HNO ID: [id number] Author: SATHISH BARRIENTOS MD Service: ? Author Type: Physician Type: Progress Notes Filed: 04/13/2024 08:28 Note Text: The patient presents for requested ultrasound. Full report available in the Imaging tab in Epic. 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 Galilea Bravo is a 48 year old female who presents for problem visit intermittent pain, spotting HPI: exam needed based off virtual visit yesterday OB History T3 L3 SAB0 IAB0 Ectopic0 Multiple0 Live Births0 [employer] History LMP: 06/04/2022 (Within Days), Having periods Age at Menarche: Age at First : Age at Menopause: [employer] History Comments: Sexual Activity: Not Currently; Male; no tatoos, no transfusions Contraception: No contraception data on record PAST MEDICAL HISTORY Diagnosis Date Esophagitis, unspecified Hiatal hernia Seizures (HCC) PAST SURGICAL HISTORY Procedure Laterality Date ESOPHAGOGASTRODUODENOSCOPY TRANSORAL DIAGNOSTIC 01/21/2012 EGD PAST SURGICAL HISTORY OF 1979 +/- ear tubes PAST SURGICAL HISTORY OF 2005 ear tubes PAST SURGICAL HISTORY OF 1978 tonsillectomy PAST SURGICAL HISTORY OF 2003 colposcopy, biopsy FAMILY HISTORY Problem Relation Age of Onset Heart Mother tachycardia Lipids Father Diabetes Maternal Grandmother Coronary Artery Disease Paternal Grandfather Diabetes Maternal Aunt Colon Cancer Other none Breast Cancer Other none Social History Tobacco Use Smoking status: Former Current packs/day: 0.00 Types: Cigarettes Quit date: 06/05/2007 Years since quittin.8 Smokeless tobacco: Never Vaping Use Vaping status: Never Used Substance Use Topics Alcohol use: Yes Comment: rarely Drug use: No Current Outpatient Medications Medication Sig busPIRone (BUSPAR) 5 mg tablet Take 1 tablet by mouth three times a day. lamoTRIgine (LAMICTAL) 25 mg tablet Take 1 tablet at night for 2 weeks then take 1 tablet twice daily for 2 weeks then take 1 tablet in the morning and 2 tablets at night for 1 week then take 2 tablets twice daily and continue at this dose. pantoprazole DR (PROTONIX) 40 mg tablet Take 1 tablet by mouth twice daily. Take on empty stomach, 1/2 hr before meal. fluticasone (FLONASE) 50 mcg/actuation nasal spray Use 2 Sprays in each nostril once daily. Rinse mouth after use. dicyclomine (BENTYL) 20 mg tablet Take 1 tablet by mouth four times daily as needed. cyclobenzaprine (FLEXERIL) 5 mg tablet Take 1 tablet by mouth three times daily as needed. cimetidine (TAGAMET) 400 mg tablet TAKE 1 TABLET BY MOUTH ONCE DAILY AT BEDTIME NEEDED No current facility-administered medications for this visit. Allergies As of Date: 04/11/2024 Allergen Noted Reaction HICKORY NUTS 01/22/2020 GI Upset MILK 04/24/2008 Diarrhea Fully Assessed 02/17/2024 REVIEW OF SYSTEMS Expanded ROS: N/A Allergies and current medication updated:Yes SENSITIVE EXAM: The sensitive examination was discussed with the Patient or Patient's Authorized Machine Captain. As applicable, any other physician, advance practice provider, medical student, or other health professional student that will be observing or involved in the sensitive examination for educational or training purposes was discussed with the Patient or Authorized Machine Captain. The Patient or Authorized Machine Captain has agreed to proceed with the sensitive examination. (Sensitive examination includes inspection and/or palpation of the breasts, pelvis, prostate and anorectal regions). EXAM: LMP 06/04/2022 GENERAL: pleasant, female in no apparent distress HEENT: Normocephalic, atraumatic, mucus membranes moist, and no lesions CHEST: Normal inspiratory effort PELVIC: external genitalia normal, normal Bartholin's glands, urethra, [place]'s glands, physiologic discharge present, normal appearing perineal body and perianal region BIMANUAL: no adnexal masses, non-tender, and difficult to assess due to body habitus Physical Exam Genitourinary: Genitourinary Comments: Slightly swollen with healing abrasions NEURO: alert and oriented x3,exam grossly non-focal ASSESSMENT/PLAN: 1. Vulvar irritation - ICD9: 624.8, ICD10: N90.89 (primary diagnosis) Kenalog ointment 2. Perineal pain - ICD9: [id number], ICD10: R10.2 Having US today 3. Unintended weight gain - ICD9: 783.1, ICD10: R63.5 - CONSULT TO ENDOCRINOLOGY Will notify patient of test results. Amparo Mukherjee APRN.SHANK BONER Medical Decision Making: Problems: Low: Acute, uncomplicated illness or injury Risk: Moderate: Drug management Medical Decision Making Level: 3 - Low Referring Provider: AMPARO MUKHERJEE [[id number]] Allergies As of Date: 04/11/2024 Noted Allergy Reaction HICKORY NUTS 01/22/2020 8 - GI Upset Comments: Charcoal and BBQ sauce, heartburn MILK 04/24/2008 6 - Diarrhea Comments: Cramps Date Reviewed: 04/11/2024 Reviewed by: Jackie Ramey LPN - Fully Assessed Reason for Visit: Problem Visit [Other] Primary Visit Diagnosis:Vulvar irritation [N90.89] Other Visit Diagnoses:Perineal pain [R10.2] Unintended weight gain [R63.5] Order(s):triamcinolone (KENALOG) 0.025 % ointmentApply to affected area two times a day.Disp: 80 gRfl: 1 CONSULT TO ENDOCRINOLOGY [9007] Order #: [id number]: 1 FUTURE Prescriptions as of 04/11/2024 - tramadol HCl (TRAMADOL ORAL) Take by mouth as needed. Back pain - triamcinolone (KENALOG) 0.025 % ointment Apply to affected area two times a day. - busPIRone (BUSPAR) 5 mg tablet Take 1 tablet by mouth three times a day. - lamoTRIgine (LAMICTAL) 25 mg tablet Take 1 tablet at night for 2 weeks then take 1 tablet twice daily for 2 weeks then take 1 tablet in the morning and 2 tablets at night for 1 week then take 2 tablets twice daily and continue at this dose. - pantoprazole DR (PROTONIX) 40 mg tablet Take 1 tablet by mouth twice daily. Take on empty stomach, 1/2 hr before meal. - fluticasone (FLONASE) 50 mcg/actuation nasal spray Use 2 Sprays in each nostril once daily. Rinse mouth after use. - dicyclomine (BENTYL) 20 mg tablet Take 1 tablet by mouth four times daily as needed. - cyclobenzaprine (FLEXERIL) 5 mg tablet Take 1 tablet by mouth three times daily as needed. - cimetidine (TAGAMET) 400 mg tablet TAKE 1 TABLET BY MOUTH ONCE DAILY AT BEDTIME NEEDED Problem List As Of Date 04/11/2024 Noted Resolved Routine gynecological examination [Z01.419] 04/24/2008 05/27/2018 Class: Chronic ESOPHAGEAL REFLUX [K21.9] 04/24/2008 Obesity, Class III, BMI 40-49.9 (morbid obesity*04/24/2008 Generalized seizures (HCC) [R56.9] 04/24/2008 Essential hypertension, benign [I10] 04/24/2008 05/27/2018 SANDRA (generalized anxiety disorder) [F41.1] 04/24/2008 Plantar fasciitis [M72.2] 07/05/2017 05/27/2018 Prescriptions ordered this encounter Disp Refills Start End TRIAMCINOLONE ACETONIDE 0.025 % TOPI* 80 g 1 04/11/2024 Route: TOPICAL Sig: Apply to affected area two times a day. Encounter Status:Closed by AMPARO MUKHERJEE on 04/11/24 PROGRESS Observed: 04/11/2024 1:27 PM Status: COMPLETED Source: [facility] HNO ID: [id number] Author: AMPARO MUKHERJEE APRN.SHANK BONER Service: ? 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 Galilea Bravo is a 48 year old female who presents for problem visit intermittent pain, spotting HPI: exam needed based off virtual visit yesterday OB History T3 L3 SAB0 IAB0 Ectopic0 Multiple0 Live Births0 [employer] History LMP: 06/04/2022 (Within Days), Having periods Age at Menarche: Age at First : Age at Menopause: [employer] History Comments: Sexual Activity: Not Currently; Male; no tatoos, no transfusions Contraception: No contraception data on record PAST MEDICAL HISTORY Diagnosis Date Esophagitis, unspecified Hiatal hernia Seizures (HCC) PAST SURGICAL HISTORY Procedure Laterality Date ESOPHAGOGASTRODUODENOSCOPY TRANSORAL DIAGNOSTIC 01/21/2012 EGD PAST SURGICAL HISTORY OF 1979 +/- ear tubes PAST SURGICAL HISTORY OF 2005 ear tubes PAST SURGICAL HISTORY OF 1978 tonsillectomy PAST SURGICAL HISTORY OF 2003 colposcopy, biopsy FAMILY HISTORY Problem Relation Age of Onset Heart Mother tachycardia Lipids Father Diabetes Maternal Grandmother Coronary Artery Disease Paternal Grandfather Diabetes Maternal Aunt Colon Cancer Other none Breast Cancer Other none Social History Tobacco Use Smoking status: Former Current packs/day: 0.00 Types: Cigarettes Quit date: 06/05/2007 Years since quittin.8 Smokeless tobacco: Never Vaping Use Vaping status: Never Used Substance Use Topics Alcohol use: Yes Comment: rarely Drug use: No Current Outpatient Medications Medication Sig busPIRone (BUSPAR) 5 mg tablet Take 1 tablet by mouth three times a day. lamoTRIgine (LAMICTAL) 25 mg tablet Take 1 tablet at night for 2 weeks then take 1 tablet twice daily for 2 weeks then take 1 tablet in the morning and 2 tablets at night for 1 week then take 2 tablets twice daily and continue at this dose. pantoprazole DR (PROTONIX) 40 mg tablet Take 1 tablet by mouth twice daily. Take on empty stomach, 1/2 hr before meal. fluticasone (FLONASE) 50 mcg/actuation nasal spray Use 2 Sprays in each nostril once daily. Rinse mouth after use. dicyclomine (BENTYL) 20 mg tablet Take 1 tablet by mouth four times daily as needed. cyclobenzaprine (FLEXERIL) 5 mg tablet Take 1 tablet by mouth three times daily as needed. cimetidine (TAGAMET) 400 mg tablet TAKE 1 TABLET BY MOUTH ONCE DAILY AT BEDTIME NEEDED No current facility-administered medications for this visit. Allergies As of Date: 04/11/2024 Allergen Noted Reaction HICKORY NUTS 01/22/2020 GI Upset MILK 04/24/2008 Diarrhea Fully Assessed 02/17/2024 REVIEW OF SYSTEMS Expanded ROS: N/A Allergies and current medication updated:Yes SENSITIVE EXAM: The sensitive examination was discussed with the Patient or Patient's Authorized Machine Captain. As applicable, any other physician, advance practice provider, medical student, or other health professional student that will be observing or involved in the sensitive examination for educational or training purposes was discussed with the Patient or Authorized Machine Captain. The Patient or Authorized Machine Captain has agreed to proceed with the sensitive examination. (Sensitive examination includes inspection and/or palpation of the breasts, pelvis, prostate and anorectal regions). EXAM: LMP 06/04/2022 GENERAL: pleasant, female in no apparent distress HEENT: Normocephalic, atraumatic, mucus membranes moist, and no lesions CHEST: Normal inspiratory effort PELVIC: external genitalia normal, normal Bartholin's glands, urethra, [place]'s glands, physiologic discharge present, normal appearing perineal body and perianal region BIMANUAL: no adnexal masses, non-tender, and difficult to assess due to body habitus Physical Exam Genitourinary: Genitourinary Comments: Slightly swollen with healing abrasions NEURO: alert and oriented x3,exam grossly non-focal ASSESSMENT/PLAN: 1. Vulvar irritation - ICD9: 624.8, ICD10: N90.89 (primary diagnosis) Kenalog ointment 2. Perineal pain - ICD9: [id number], ICD10: R10.2 Having US today 3. Unintended weight gain - ICD9: 783.1, ICD10: R63.5 - CONSULT TO ENDOCRINOLOGY Will notify patient of test results. Amparo Mukherjee APRN.CNP Medical Decision Making: Problems: Low: Acute, uncomplicated illness or injury Risk: Moderate: Drug management Medical Decision Making Level: 3 - Low PROGRESS Observed: 04/10/2024 12:34 PM Status: COMPLETED Source: [facility] HN ID: [id number] Author: AMPARO MUKHERJEE APRN.CNP Service: ? Author Type: Nurse Practitioner Type: Progress Notes Filed: 04/10/2024 13:22 Note Text: VIRTUAL VISIT PROGRESS NOTE This is a virtual visit using [employer] Video Visit. It required patient-provider interaction for the medical decision making as documented below. I have communicated my name and active licensure. The patient's identity and physical location were verified at the time of this visit. Either the patient or their legal student services representative has been informed of the risks and benefits of -- and alternatives to -- treatment through a remote evaluation and consents to proceed with the evaluation remotely. Galilea Bravo is a 48 year old female seen for pain. Before thanksgiving started with nausea in the morning, nausea with eating sometimes, dizzy, feeling off balance, constipated. Recent hemorrhoid issues Perineal varicosis?? Having some blood on the sides of her pad. Perineal pain- taking Ibuprofen and Tylenol Gushed pink watery fluid- LMP 10/2023 Losing health insurance for 90 days HISTORY REVIEWED (electronic chart updated): PAST MEDICAL HISTORY Diagnosis Date Esophagitis, unspecified Hiatal hernia Seizures (HCC) PAST SURGICAL HISTORY Procedure Laterality Date ESOPHAGOGASTRODUODENOSCOPY TRANSORAL DIAGNOSTIC 01/21/2012 EGD PAST SURGICAL HISTORY OF 1979 +/- ear tubes PAST SURGICAL HISTORY OF 2005 ear tubes PAST SURGICAL HISTORY OF 1978 tonsillectomy PAST SURGICAL HISTORY OF 2003 colposcopy, biopsy FAMILY HISTORY Problem Relation Age of Onset Heart Mother tachycardia Lipids Father Diabetes Maternal Grandmother Coronary Artery Disease Paternal Grandfather Diabetes Maternal Aunt Colon Cancer Other none Breast Cancer Other none Social History Tobacco Use Smoking status: Former Current packs/day: 0.00 Types: Cigarettes Quit date: 06/05/2007 Years since quittin.8 Smokeless tobacco: Never Vaping Use Vaping status: Never Used Substance Use Topics Alcohol use: Yes Comment: rarely Drug use: No Current Outpatient Medications Medication Sig busPIRone (BUSPAR) 5 mg tablet Take 1 tablet by mouth three times a day. lamoTRIgine (LAMICTAL) 25 mg tablet Take 1 tablet at night for 2 weeks then take 1 tablet twice daily for 2 weeks then take 1 tablet in the morning and 2 tablets at night for 1 week then take 2 tablets twice daily and continue at this dose. pantoprazole DR (PROTONIX) 40 mg tablet Take 1 tablet by mouth twice daily. Take on empty stomach, 1/2 hr before meal. fluticasone (FLONASE) 50 mcg/actuation nasal spray Use 2 Sprays in each nostril once daily. Rinse mouth after use. dicyclomine (BENTYL) 20 mg tablet Take 1 tablet by mouth four times daily as needed. cyclobenzaprine (FLEXERIL) 5 mg tablet Take 1 tablet by mouth three times daily as needed. cimetidine (TAGAMET) 400 mg tablet TAKE 1 TABLET BY MOUTH ONCE DAILY AT BEDTIME NEEDED No current facility-administered medications for this visit. ALLERGIES Allergen Reactions [place] Nuts GI Upset Charcoal and BBQ sauce, heartburn Milk Diarrhea Cramps REVIEW OF SYSTEMS: As noted in HPI PHYSICAL EXAMINATION: VIDEO EXAM: (if completed, performed via video enabled technology) No exam performed ASSESSMENT/PLAN: 1. Pelvic pain in female - ICD9: 625.9, ICD10: R10.2 - PELVIC US [facility] Office visit tomorrow Amparo Mukherjee APRN.CNPI spent a total of 25 minutes on the date of the service which included preparing to see the patient, [id number] patient care, completing clinical documentation, obtaining and/or reviewing separately obtained history, counseling and educating the patient/family/caregiver, and ordering medications, tests, or procedures Amparo Mukherjee APRN.CNP CNOV Observed: 02/17/2024 9:00 AM Status: COMPLETED Source: [facility] Office Visit (OBGYWM) GALILEA BRAVO ([id number]) 1975 F Date Time Provider Department 02/17/24 9:00 AM AMPARO MUKHERJEE OBGYWM During your visit today, we recorded the following information about you: Blood pressure Weight Height Last Period 128/84 130.4 kg 1.582 m 06/04/22 Amparo Mukherjee APRN.CNP 02/17/2024 9:36 AM Signed 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 Galilea is a 48 year old who presents for an annual gynecologic exam without complaints. Menses: LMP October 2023. Contraception: none HPV vaccine: No Last Pap: 07/02/2022 normal HPV: 07/02/2022 negative History of abnormal pap: Yes colposcopy 2003 Last mammogram: Follow up views benign 12/16/2022 (LT) breast cyst.Mammogram scheduled 02/17/2024 Sexually active: No Hot flashes: better Night sweats: better OB History T3 L3 SAB0 IAB0 Ectopic0 Multiple0 Live Births0 [employer] History LMP: 06/04/2022 (Within Days), Having periods Age at Menarche: Age at First : Age at Menopause: [employer] History Comments: Sexual Activity: Not Currently; Male; no tatoos, no transfusions Contraception: No contraception data on record PAST MEDICAL HISTORY Diagnosis Date Esophagitis, unspecified Hiatal hernia Seizures (HCC) PAST SURGICAL HISTORY Procedure Laterality Date ESOPHAGOGASTRODUODENOSCOPY TRANSORAL DIAGNOSTIC 01/21/2012 EGD PAST SURGICAL HISTORY OF 1979 +/- ear tubes PAST SURGICAL HISTORY OF 2005 ear tubes PAST SURGICAL HISTORY OF 1978 tonsillectomy PAST SURGICAL HISTORY OF 2003 colposcopy, biopsy FAMILY HISTORY Problem Relation Age of Onset Heart Mother tachycardia Lipids Father Diabetes Maternal Grandmother Coronary Artery Disease Paternal Grandfather Diabetes Maternal Aunt Colon Cancer Other none Breast Cancer Other none SOCIAL HISTORY Social History Tobacco Use Smoking status: Former Current packs/day: 0.00 Types: Cigarettes Quit date: 06/05/2007 Years since quittin.7 Smokeless tobacco: Never Vaping Use Vaping status: Never Used Substance Use Topics Alcohol use: Yes Comment: rarely Drug use: No REVIEW OF SYSTEMS Abdomen: No abdominal pain, nausea, vomiting, diarrhea, or constipation. No bloating, early satiety, indigestion, or increased flatulence. Bladder: No dysuria, gross hematuria, urinary frequency, urinary urgency, or incontinence. Breast: No breast lumps, nipple d/c, overlying skin changes, redness or skin retraction. Allergies and current medication updated:Yes SENSITIVE EXAM: The sensitive examination was discussed with the Patient or Patient's Authorized Machine Captain. As applicable, any other physician, advance practice provider, medical student, or other health professional student that will be observing or involved in the sensitive examination for educational or training purposes was discussed with the Patient or Authorized Machine Captain. The Patient or Authorized Machine Captain has agreed to proceed with the sensitive examination. (Sensitive examination includes inspection and/or palpation of the breasts, pelvis, prostate and anorectal regions). EXAM: BP 128/84 Ht 5' 2.283 (1.58m) Wt 287 lb 6.4 oz (130.4kg) LMP 06/04/2022 BMI 52.09 kg/(m2). GENERAL: pleasant, female in no apparent distress HEENT: Normocephalic, atraumatic, mucus membranes moist, and no lesions BREAST: soft, non-tender, symmetric, no dominant mass, normal nipple-areolar complex, no lymphadenopathy, and no nipple discharge CHEST: Normal inspiratory effort ABDOMEN: soft, non-tender, and no masses PELVIC: external genitalia normal, normal Bartholin's glands, urethra, [place]'s glands, no vulvar lesions, no cervical lesions, physiologic discharge present, normal appearing perineal body and perianal region BIMANUAL: uterus normal size, shape and consistency, no adnexal masses, and non-tender RECTOVAGINAL: deferred. NEURO: alert and oriented x3,exam grossly non-focal EXTREMITIES: normal ASSESSMENT/PLAN: 1) Health maintenance: Pap/HPV up to date. Mammogram up to date . Done at [facility] Nutrition, exercise and routine health maintenance exams reviewed. Calcium/Vitamin D supplementation information provided. 2) Contraception: none. Contraceptive options reviewed and information provided. 3) STD screening: Declined STD check. 4) Follow up one year or sooner as needed Amparo Mukherjee APRN.SHANK BONER Allergies As of Date: 02/17/2024 Noted Allergy Reaction HICKORY NUTS 01/22/2020 8 - GI Upset Comments: Charcoal and BBQ sauce, heartburn MILK 04/24/2008 6 - Diarrhea Comments: Cramps Date Reviewed: 02/17/2024 Reviewed by: Jackie Ramey LPN - Fully Assessed Reason for Visit: Well Woman [1463] Primary Visit Diagnosis:Encounter for gynecological examination (general) (routine) without abnormal findings [Z01.419] Order(s):busPIRone (BUSPAR) 5 mg tabletTake 1 tablet by mouth three times a day.Disp: 60 tabletRfl: 1 Prescriptions as of 02/17/2024 - busPIRone (BUSPAR) 5 mg tablet Take 1 tablet by mouth three times a day. - lamoTRIgine (LAMICTAL) 25 mg tablet Take 1 tablet at night for 2 weeks then take 1 tablet twice daily for 2 weeks then take 1 tablet in the morning and 2 tablets at night for 1 week then take 2 tablets twice daily and continue at this dose. - pantoprazole DR (PROTONIX) 40 mg tablet Take 1 tablet by mouth twice daily. Take on empty stomach, 1/2 hr before meal. - fluticasone (FLONASE) 50 mcg/actuation nasal spray Use 2 Sprays in each nostril once daily. Rinse mouth after use. - dicyclomine (BENTYL) 20 mg tablet Take 1 tablet by mouth four times daily as needed. - cyclobenzaprine (FLEXERIL) 5 mg tablet Take 1 tablet by mouth three times daily as needed. - cimetidine (TAGAMET) 400 mg tablet TAKE 1 TABLET BY MOUTH ONCE DAILY AT BEDTIME NEEDED Problem List As Of Date 02/17/2024 Noted Resolved Routine gynecological examination [Z01.419] 04/24/2008 05/27/2018 Class: Chronic ESOPHAGEAL REFLUX [K21.9] 04/24/2008 Obesity, Class III, BMI 40-49.9 (morbid obesity*04/24/2008 Generalized seizures (HCC) [R56.9] 04/24/2008 Essential hypertension, benign [I10] 04/24/2008 05/27/2018 SANDRA (generalized anxiety disorder) [F41.1] 04/24/2008 Plantar fasciitis [M72.2] 07/05/2017 05/27/2018 Prescriptions ordered this encounter Disp Refills Start End BUSPIRONE 5 MG TABLET 60 t* 1 02/17/2024 Route: ORAL Sig: Take 1 tablet by mouth three times a day. Disposition: Return in 1 year (on 02/16/2025) for Annual Exam. Follow-up and Disposition History for Encounter Date Provider Department Center 02/17/2024 [id number] MUKHERJEE Encounter Status:Closed by AMPARO MUKHERJEE on 02/17/24 PROGRESS Observed: 02/17/2024 8:53 AM Status: COMPLETED Source: [facility] ID: [id number] Author: AMPARO MUKHERJEE APRN.SHANK BONER Service: ? Author Type: Nurse Practitioner Type: Progress Notes Filed: 02/17/2024 09:36 Note Text: 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 Galilea is a 48 year old who presents for an annual gynecologic exam without complaints. Menses: LMP October 2023. Contraception: none HPV vaccine: No Last Pap: 07/02/2022 normal HPV: 07/02/2022 negative History of abnormal pap: Yes colposcopy 2003 Last mammogram: Follow up views benign 12/16/2022 (LT) breast cyst.Mammogram scheduled 02/17/2024 Sexually active: No Hot flashes: better Night sweats: better OB History T3 L3 SAB0 IAB0 Ectopic0 Multiple0 Live Births0 [employer] History LMP: 06/04/2022 (Within Days), Having periods Age at Menarche: Age at First : Age at Menopause: [employer] History Comments: Sexual Activity: Not Currently; Male; no tatoos, no transfusions Contraception: No contraception data on record PAST MEDICAL HISTORY Diagnosis Date Esophagitis, unspecified Hiatal hernia Seizures (HCC) PAST SURGICAL HISTORY Procedure Laterality Date ESOPHAGOGASTRODUODENOSCOPY TRANSORAL DIAGNOSTIC 01/21/2012 EGD PAST SURGICAL HISTORY OF 1979 +/- ear tubes PAST SURGICAL HISTORY OF 2005 ear tubes PAST SURGICAL HISTORY OF 1978 tonsillectomy PAST SURGICAL HISTORY OF 2003 colposcopy, biopsy FAMILY HISTORY Problem Relation Age of Onset Heart Mother tachycardia Lipids Father Diabetes Maternal Grandmother Coronary Artery Disease Paternal Grandfather Diabetes Maternal Aunt Colon Cancer Other none Breast Cancer Other none SOCIAL HISTORY Social History Tobacco Use Smoking status: Former Current packs/day: 0.00 Types: Cigarettes Quit date: 06/05/2007 Years since quittin.7 Smokeless tobacco: Never Vaping Use Vaping status: Never Used Substance Use Topics Alcohol use: Yes Comment: rarely Drug use: No REVIEW OF SYSTEMS Abdomen: No abdominal pain, nausea, vomiting, diarrhea, or constipation. No bloating, early satiety, indigestion, or increased flatulence. Bladder: No dysuria, gross hematuria, urinary frequency, urinary urgency, or incontinence. Breast: No breast lumps, nipple d/c, overlying skin changes, redness or skin retraction. Allergies and current medication updated:Yes SENSITIVE EXAM: The sensitive examination was discussed with the Patient or Patient's Authorized Machine Captain. As applicable, any other physician, advance practice provider, medical student, or other health professional student that will be observing or involved in the sensitive examination for educational or training purposes was discussed with the Patient or Authorized Machine Captain. The Patient or Authorized Machine Captain has agreed to proceed with the sensitive examination. (Sensitive examination includes inspection and/or palpation of the breasts, pelvis, prostate and anorectal regions). EXAM: BP 128/84 Ht 5' 2.283 (1.58m) Wt 287 lb 6.4 oz (130.4kg) LMP 06/04/2022 BMI 52.09 kg/(m2). GENERAL: pleasant, female in no apparent distress HEENT: Normocephalic, atraumatic, mucus membranes moist, and no lesions BREAST: soft, non-tender, symmetric, no dominant mass, normal nipple-areolar complex, no lymphadenopathy, and no nipple discharge CHEST: Normal inspiratory effort ABDOMEN: soft, non-tender, and no masses PELVIC: external genitalia normal, normal Bartholin's glands, urethra, [place]'s glands, no vulvar lesions, no cervical lesions, physiologic discharge present, normal appearing perineal body and perianal region BIMANUAL: uterus normal size, shape and consistency, no adnexal masses, and non-tender RECTOVAGINAL: deferred. NEURO: alert and oriented x3,exam grossly non-focal EXTREMITIES: normal ASSESSMENT/PLAN: 1) Health maintenance: Pap/HPV up to date. Mammogram up to date . Done at [facility] Nutrition, exercise and routine health maintenance exams reviewed. Calcium/Vitamin D supplementation information provided. 2) Contraception: none. Contraceptive options reviewed and information provided. 3) STD screening: Declined STD check. 4) Follow up one year or sooner as needed Amparo Mukherjee APRN.SHANK BONER ALLERGIES DATE TYPE / CODE NAME / CODE REACTION SEVERITY SOURCE 01/22/2020 Food/[id number](SNOM ED CT) HICKORY NUTS GI UPSET [facility] 04/24/2008 Food/[id number](SNOM ED CT) MILK DIARRHEA [facility] ENCOUNTERS ADMIT/DISCHARGE ACCOUNT NUMBER ADMITTING ENCOUNTER CLASS LOCATION SOURCE 04/30/2024/ 4 [id number] [facility] 04/11/2024/ 4 [id number] [facility] 04/11/2024/ 4 [id number] [facility] 04/10/2024/ 4 [id number] [facility] 02/17/2024/ 4 [id number] [facility] PAYERS ENCOUNTER GUARANTOR PAYER SUBSCRIBER SOURCE 04/30/2024 GALILEA BARNETT: [id number] [place] [address]~[email or web address]: () Primary Insurance:[employer] INSCOPolicy Number: [id number] tive Date:0860-06-53Ryhy Name:[facility] DEBBIE [id number] [place] [id number]: OLAMIDE BARNETT: [id number] [place], [place] [address]Ffg: () (WP) [facility] 04/11/2024 Primary Insurance:BLUE CARD PPO OOSPolicy Number: [id number] tive Date:2805-42-62Ufut Name:Cesar BARNETT: [id number] [place] [address] [facility] 04/11/2024 Primary Insurance:BLUE CARD PPO OOSPolicy Number: [id number] tive Date:8922-28-49Mejy Name:Cesar BARNETT: [id number] [place] [address] [facility] 04/10/2024 Primary Insurance:BLUE CARD PPO OOSPolicy Number: [id number] tive Date:2516-83-13Vdbo Name:Cesar BARNETT: [id number] [place] [address] [facility] 02/17/2024 Primary Insurance:BLUE CARD PPO OOSPolicy Number: [id number] tive Date:4486-07-27Fwyu Name:Cesar BARNETT: [id number] [place] [address] [facility]
[2025-01-30 13:32] LABS: Hematocrit 38.4 % (37-47); Hemoglobin 13.3 g/dL (12.0-15.0); Immature Granulocytes Count 0.020 X10^3/uL (0.0-0.0); Mean Corp Hgb Conc 34.6 g/dL (32-36); Mean Corpuscular Volume 83.8 fL (81-99); Mean Platelet Vol. 9.2 fl (6.2-12.0); NRBC Flagged by Analyzer 0 % (0-5); Platelet Count 179 K/mm3 (150-450); RBC Distribution Width CV 14.2 % (11.6-14.6); RBC Distribution Width SD 43.1 fl (35.1-43.9); Red Blood Count 4.58 M/mm3 (4.2-5.4); White Blood Count 4.7 K/mm3 (4.4-11.0)
== END | disposition home or self-care (01) ==
LOC: LAB 13:06
PROVIDERS: PCP Family Medicine; Referring Provider Obstetrics & Gynecology; Visit Provider Obstetrics & Gynecology
DX: R16.1 Splenomegaly, not elsewhere classified (principal); K76.0 Fatty (change of) liver, not elsewhere classified
CPT/HCPCS: 36415; 85025